=== PATIENT | male | born 1945 | race Caucasian/White ===

== ENCOUNTER 2017-08-13 08:24 | Inpatient (IN) | payer OTHER ==
[~2017-08-13] VITALS: Ht 182.8 cm; Wt 105.8 kg
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
[~2017-08-13 08:24] MED LIST: AMLODIPINE10 MG PO; ASPIRIN ADULT L81 M1 PO; CIPROFLOXACIN500 MG PO; CLOPIDOGREL75 MG PO; FLOMAX0.4 MG PO; LISINOPRIL40 MG PO; METOPROLOL TART50 M1 PO; VITAMIN C500 M4 PO
[2017-08-13 08:43] VITALS: BP 134/74
[2017-08-13 08:44] LABS: BASO % 0.3 % (0.0-1.0); EOS % 0.4 % (1.0-4.0); HEMATOCRIT 38.8 % (42.0-52.0); HEMOGLOBIN 13.5 g/dl (14.0-18.0); LYMPH # 0.8 10*3/uL (1.3-4.4); LYMPH % 7.1 % (27.0-41.0); MEAN CELL VOLUME 87.8 fl (80.0-94.0); MEAN CORPUSCULAR HGB 30.5 pg (27.0-31.0); MEAN CORPUSCULAR HGB CONC 34.8 g/dl (33.0-37.0); MEAN PLATELET VOLUME 8.8 fl (9.6-12.3); MONO # 0.5 10*3/uL (0.1-1.0); MONO % 4.3 % (3.0-9.0); NEUT # 9.5 10*3/uL (2.3-7.9); NEUT % 87.3 % (47.0-73.0); PLATELET COUNT AUTOMATED 228 10*3/uL (130-400); RED BLOOD COUNT 4.42 10*6/uL (4.50-5.90); RED CELL DISTRI WIDTH 11.8 % (0-14.5); WHITE BLOOD COUNT 10.9 10*3/uL (4.8-10.8)
[2017-08-13 08:59] LABS: ALBUMIN 3.7 gm/dl (3.1-4.5); ALKALINE PHOSPHATASE 119 U/L (45-117); BUN 17 mg/dl (7-24); CHLORIDE 96 mmol/L (98-107); CREATININE 1.26 mg/dL (0.70-1.30); LIPASE 183 U/L (73-393); POTASSIUM 3.2 mmol/L (3.5-5.1); SGOT/AST 21 IU/L (3-35); SGPT/ALT 18 U/L (12-78); SODIUM 132 mmol/L (136-145); TOTAL PROTEIN 7.3 gm/dL (6.4-8.2)
--- NOTE | 2017-08-13 09:06 | NUR ---
NAUSEA IS RESOLVED. SALINE INFUSING. NEW ORDER FOR GALLBLADDER ULTRASOUND.
--- NOTE | 2017-08-13 10:21 | NUR ---
PT REPORTS MODERATE IMPROVEMENT IN NAUSEA AN MINIMAL IMPROVEMENT IN PAIN SINCE PHENERGAN AND DEMEROL DOSING. ALL TESTS HAVE NOW RETURNED. DR AWARE AND IS AT BEDSIDE NOW. FAMILY AT BEDSIDE.
--- NOTE | 2017-08-13 10:50 | NUR ---
NO IMPROVEMENT IN PAIN OR NAUSEA SINCE REGLAN. NEW ORDERS PENDING.
--- NOTE | 2017-08-13 10:56 | NUR ---
YULIETID AND ZFRON STOP TIMES ARE NOW
[2017-08-13 11:01] VITALS: BP 137/89
[2017-08-13 11:30] VITALS: BP 122/70
--- NOTE | 2017-08-13 11:31 | NUR ---
MSADMTime: N A 71 year old MALE admitted to 5E under services of SHANITA BARILLAS DO. Pt. arrived via bed from ER. Chief complaint: NAUSEA/VOMITING, ABDM. PAIN. JUSTINO BARNETT
[2017-08-13 16:00] VITALS: BP 148/95
--- NOTE | 2017-08-13 16:22 | NUR ---
MOTRIN GIVEN FOR C/O RT UPPER QUAD PAIN. WILL MONITOR.
--- NOTE | 2017-08-13 17:30 | NUR ---
VLAD LINCOLN RT UPPER QUAD PAIN. WILL CONTINUE TO MONITOR.
[2017-08-13 20:00] VITALS: BP 140/80
[2017-08-13 21:55] LABS: BILIRUBIN NEGATIVE (NEGATIVE); BLOOD 2+ (NEGATIVE); CLARITY CLEAR (CLEAR); COLOR YELLOW (YELLOW); GLUCOSE NEGATIVE (NEGATIVE); KETONE NEGATIVE (NEGATIVE); LEUKO ESTERASE TRACE (NEGATIVE); NITRITE NEGATIVE (NEGATIVE); SPECIFIC GRAVITY <= 1.005 (1.005-1.030); UROBILINOGEN 0.2 E.U./dl (0.2-1.0)
[2017-08-13 22:02] LABS: BACTERIA 2+
[2017-08-13 22:05] LABS: URINE AMPHETAMINES < 1000 (1000ng/ml); URINE BARBITURATES < 200 (200ng/ml); URINE BENZODIAZEPINES < 200 (200ng/ml); URINE CANNABINOIDS (THC) < 50 (50ng/ml); URINE COCAINE < 300 (300ng/ml); URINE METHADONE < 300 (300ng/ml); URINE OPIATES < 300 (300ng/ml)
[2017-08-13 22:06] LABS: URINE PHENCYCLIDINE < 25 (25ng/ml)
[2017-08-14] VITALS: BP 121/88
--- NOTE | 2017-08-14 00:23 | NUR ---
PATIENT RESTING IN BED WITH NO NEEDS MADE. NO S/S OF DISTRESS. BED IN LOWEST POSITION, CALL LIGHT IN REACH
--- NOTE | 2017-08-14 03:33 | NUR ---
PATIENT RESTING IN BED WITH NO NEEDS MADE. NO S/S OF DISTRESS. BED IN LOWEST POSITION, CALL LIGHT IN REACH
[2017-08-14 05:59] LABS: BASO % 0.2 % (0.0-1.0); EOS % 0.2 % (1.0-4.0); HEMATOCRIT 35.8 % (42.0-52.0); HEMOGLOBIN 12.6 g/dl (14.0-18.0); LYMPH # 0.7 10*3/uL (1.3-4.4); LYMPH % 5.8 % (27.0-41.0); MEAN CELL VOLUME 88.6 fl (80.0-94.0); MEAN CORPUSCULAR HGB 31.2 pg (27.0-31.0); MEAN CORPUSCULAR HGB CONC 35.2 g/dl (33.0-37.0); MEAN PLATELET VOLUME 9.3 fl (9.6-12.3); MONO % 8.1 % (3.0-9.0); NEUT # 10.2 10*3/uL (2.3-7.9); NEUT % 85.1 % (47.0-73.0); PLATELET COUNT AUTOMATED 205 10*3/uL (130-400); RED BLOOD COUNT 4.04 10*6/uL (4.50-5.90); RED CELL DISTRI WIDTH 11.9 % (0-14.5)
[2017-08-14 06:33] LABS: ALBUMIN 3.3 gm/dl (3.1-4.5); ALKALINE PHOSPHATASE 98 U/L (45-117); BUN 12 mg/dl (7-24); CHLORIDE 102 mmol/L (98-107); CHOLESTEROL 166 mg/dL (<200); CREATININE 1.11 mg/dL (0.70-1.30); HDL CHOLESTEROL 45 mg/dl (40-60); LDL CHOLESTEROL 95 mg/dL (9-159); MAGNESIUM 1.4 mg/dL (1.5-2.1); PHOSPHOROUS 2.3 mg/dL (2.5-4.9); POTASSIUM 3.9 mmol/L (3.5-5.1); SGOT/AST 20 IU/L (3-35); SGPT/ALT 16 U/L (12-78); SODIUM 137 mmol/L (136-145); TOTAL PROTEIN 6.7 gm/dL (6.4-8.2); TRIGLYCERIDES 130 mg/dl (<150); VLDL CHOLESTEROL 26 mg/dL (6-40)
[2017-08-14 06:35] LABS: ACT PARTIAL THROMBO TIME 25.9 SECONDS (20.8-31.5)
[2017-08-14 06:39] LABS: THYROID STIM HORMONE (HS) 0.484 uIU/ml (0.358-4.75)
[2017-08-14 07:02] LABS: VITAMIN D, 25-HYDROXY 34.4 ng/mL (30-100)
[2017-08-14 08:00] VITALS: BP 118/73
--- NOTE | 2017-08-14 09:39 | NUR ---
DR PARRISH IN & INFORMED OF LOW GRADE TEMPERATURE WELL MILD TACHYCARDIA. NO NEW ORDERS.
--- NOTE | 2017-08-14 11:20 | NUR ---
DR. HALLMAN AND DR. MENDOZA IN TO SEE PT. AT THIS TIME, MADE AWARE OF SECOND HIGH TEMPERATURE READING. NEW ORDERS RECEIVED AT THIS TIME.
--- NOTE | 2017-08-14 11:35 | NUR ---
DR. HALLMAN NOTIFIED THAT PT. IS BEING TAKEN DOWN FOR ORDERED CHEST X-RAY, PER DR. HALLMAN BAG #3 OF NS CAN BE HUNG AT CURRENT RATE OF 125ML/HR, BOLUS OF NS AT 999ML/HR CAN BEGIN WHEN PT. RETURNS TO THE UNIT.
[2017-08-14 12:00] VITALS: BP 116/76
--- NOTE | 2017-08-14 12:47 | NUR ---
DR. HALLMAN CALLED AT THIS TIME TO CHANGE TYELENOL (SUPP) TO ORAL. DR. HALLMAN STATED HE WILL MAKE THIS CHANGE.
--- NOTE | 2017-08-14 13:16 | NUR ---
SPOKE WITH DR. HALLMAN AT THIS TIME ABOUT PTS. CRITICAL LAB OF LACTIC ACID 2.1. DR. HALLMAN STATED TO CONTINUE WITH THE BOLUS AND ANTIBIOTIC WHEN THE PT. RETURNS TO THE UNIT, NO NEW ORDERS AT THIS TIME.
[2017-08-14 15:09] LABS: BILIRUBIN NEGATIVE (NEGATIVE); BLOOD 2+ (NEGATIVE); CLARITY SL CLOUDY (CLEAR); COLOR YELLOW (YELLOW); GLUCOSE NEGATIVE (NEGATIVE); KETONE NEGATIVE (NEGATIVE); LEUKO ESTERASE 3+ (NEGATIVE); NITRITE NEGATIVE (NEGATIVE); PH 5.5 (5.0-9.0); UROBILINOGEN 0.2 E.U./dl (0.2-1.0)
[2017-08-14 15:22] LABS: BACTERIA 2+; RBC 0-2 rbc/hpf (0-2); WBC TNTC wbc/hpf (0-5)
--- NOTE | 2017-08-14 15:42 | NUR ---
DR. HALLMAN NOTIFIED AT THIS TIME OF PTS. CRITICAL LACTIC ACID OF 3.2. DR. HALLMAN STATED THAT WE WILL DO ANOTHER FLUID BOLUS OF NS @999ML/HR.
[2017-08-14 16:00] VITALS: BP 95/54
[2017-08-14 20:00] VITALS: BP 83/44
--- NOTE | 2017-08-14 20:21 | NUR ---
SON CALLED AND WAS UPDATED ON PTS CONDITION, NO FURTHER QUESTIONS AT THIS TIME, HELD BP MEDICATIONS AT THIS TIME, R/T PT HAD DECREASED BP 92/54
--- NOTE | 2017-08-14 20:32 | NUR ---
ADMINSTERED TYLENOL 650MG PO PRN PER ORDERS, R/T INCREASED TEMP. WILL MONITOR EFFECTS
--- NOTE | 2017-08-14 20:55 | NUR ---
CONSULT CALLED IN TO CALL RETURNED FROM WITH NEW ORDERS RECIEVED
[2017-08-14 21:00] VITALS: BP 109/63
--- NOTE | 2017-08-14 21:00 | NUR ---
PT TRANSFERED TO ICCU AT THIS TIME WITH BELONGINGS, ORDERED R/T DECREASED BP, INCREASED HR AND TEMP, REPORT GIVEN TO VANNA DOTSON RN
--- NOTE | 2017-08-14 21:00 | NUR ---
PT. RECEIVED FROM INPATIENT AT 2100, REPORT RECEIVED FROM DEONNA RIVER. ALL BELONGINGS WITH PATIENT. VITAL SIGNS 101.1-108-22, 109/63. PT. REMAINS ALERT AND ORIENTED (VERY COCOPAH). LUNGS DIMINISHED BILAT, PULSE OX 95% ON RA. ABDOMEN SOFT, NONDISTENDED AND NORMO. 1+BLE EDEMA NOTED. PT. STATED NO PAIN UPON ARRIVAL TO ICCU. VANNA DOTSON RN
--- NOTE | 2017-08-14 21:49 | NUR ---
DR. GE CONSULTED PRIOR TO TRANSFER TO ICCU, ORDERS RECEIVED BY INPATIENT. VANNA DOTSON RN
[2017-08-15] VITALS: BP 100/60
--- NOTE | 2017-08-15 00:19 | NUR ---
PT. RESTING COMFORTABLY, NO COMPLAINTS VOICED.
[2017-08-15 04:00] VITALS: BP 100/54
[2017-08-15 04:11] LABS: BASO % 0.1 % (0.0-1.0); LYMPH # 0.8 10*3/uL (1.3-4.4); LYMPH % 5.7 % (27.0-41.0); MEAN CELL VOLUME 90.4 fl (80.0-94.0); MEAN CORPUSCULAR HGB CONC 34.3 g/dl (33.0-37.0); MEAN PLATELET VOLUME 8.5 fl (9.6-12.3); MONO # 1.1 10*3/uL (0.1-1.0); MONO % 7.6 % (3.0-9.0); NEUT # 12.1 10*3/uL (2.3-7.9); NEUT % 85.3 % (47.0-73.0); RED BLOOD COUNT 3.13 10*6/uL (4.50-5.90); RED CELL DISTRI WIDTH 12.2 % (0-14.5); WHITE BLOOD COUNT 14.1 10*3/uL (4.8-10.8)
[2017-08-15 04:15] LABS: HEMATOCRIT 28.3 % (42.0-52.0); HEMOGLOBIN 9.7 g/dl (14.0-18.0); PLATELET COUNT AUTOMATED 126 10*3/uL (130-400)
[2017-08-15 04:26] LABS: BUN 12 mg/dl (7-24); CHLORIDE 105 mmol/L (98-107); CREATININE 1.17 mg/dL (0.70-1.30); MAGNESIUM 1.3 mg/dL (1.5-2.1); POTASSIUM 3.4 mmol/L (3.5-5.1); SODIUM 136 mmol/L (136-145)
[2017-08-15 08:00] VITALS: BP 97/60
--- NOTE | 2017-08-15 08:30 | NUR ---
SHANK STITCHER VS. PT BEING TAKEN OFF FLOOR FOR TESTIN. STAFF STATES PT UPSET THAT IS HOME POSSIBLY ALONE. HAS HAD STROKE AND PT IS HER CAREGIVER. I CALLED HIS SON ESTHER. ESTHER TELLS ME PT IS NOT ALONE. HIS SISTER STAYS AT NIGHT AND WAS ON HIS WAY TO STAY WITH HER TODAY. ESTHER ASSURES ME PT WILL NOT BE LEFT ALONE. PT INFORMED IS BEING CARED FOR.
--- NOTE | 2017-08-15 09:00 | NUR ---
TAKEN DOWN TO NUCLEAR MED FOR HIDA SCAN.
[2017-08-15 12:00] VITALS: BP 109/55
[2017-08-15 16:00] VITALS: BP 111/60
--- NOTE | 2017-08-15 16:30 | NUR ---
VOIDED 150CC URINE. BLADDER SCANNED FOR 40CC URINE.
--- NOTE | 2017-08-15 18:28 | NUR ---
DR ELI MULLINS NOTIFIED THAT HIDA SCAN RESULTS AVAILABLE AND THAT PT HAS A SKIN TEAR ON HIS LEFT ARM.
--- NOTE | 2017-08-15 18:44 | NUR ---
DR. MCCRARY NOTIFIED OF HIDA SCAN RESULT. HE STATES TO MAKE PATIENT NPO AND HE WILL LET DR. VASQUEZ KNOW WHO IS YOUTH CARE PROFESSIONAL.
--- NOTE | 2017-08-15 18:45 | NUR ---
DR. VASQUEZ CALLED IN AND UPDATED ON PATIENT'S CONDITION. WILL SEE IN AM.
[2017-08-15 20:00] VITALS: BP 110/64
--- NOTE | 2017-08-15 20:08 | NUR ---
PT. RESTING IN BED WATCHING TV. IVF INFUSING VIA RH, SITE ASYMPT. LUNGS DIMINISHED BUT CLEAR BILAT.PULSE OX 96% ON RA. ABDOMEN SOFT, NONDISTENDED AND NORMO, PT. STATED RIGHT UPPER QUAD TENDERNESS WITH PALPATION. BLE EDEMA NOTED. RESP. EASY AND REG, NO DISTRESS. VANNA DOTSON RN
[2017-08-16] VITALS: BP 111/69
[2017-08-16 04:00] VITALS: BP 106/97
[2017-08-16 04:51] LABS: BASO % 0.1 % (0.0-1.0); EOS # 0.1 10*3/uL (0.0-0.4); EOS % 1.2 % (1.0-4.0); HEMATOCRIT 27.6 % (42.0-52.0); HEMOGLOBIN 9.5 g/dl (14.0-18.0); LYMPH # 0.8 10*3/uL (1.3-4.4); LYMPH % 9.2 % (27.0-41.0); MEAN CELL VOLUME 90.5 fl (80.0-94.0); MEAN CORPUSCULAR HGB 31.1 pg (27.0-31.0); MEAN CORPUSCULAR HGB CONC 34.4 g/dl (33.0-37.0); MEAN PLATELET VOLUME 9.2 fl (9.6-12.3); MONO # 0.6 10*3/uL (0.1-1.0); NEUT # 7.5 10*3/uL (2.3-7.9); PLATELET COUNT AUTOMATED 142 10*3/uL (130-400); RED BLOOD COUNT 3.05 10*6/uL (4.50-5.90); RED CELL DISTRI WIDTH 12.2 % (0-14.5); WHITE BLOOD COUNT 9.2 10*3/uL (4.8-10.8)
[2017-08-16 05:06] LABS: BUN 10 mg/dl (7-24); CHLORIDE 106 mmol/L (98-107); CREATININE 0.95 mg/dL (0.70-1.30); POTASSIUM 3.3 mmol/L (3.5-5.1); SODIUM 137 mmol/L (136-145)
[2017-08-16 08:00] VITALS: BP 119/83; BP 120/79
--- NOTE | 2017-08-16 11:43 | NUR ---
DR AVILEZ IN TO SEE PT. INFORMED PT THAT HE WILL NEED TO GET HIS GALLBLADDER OUT PRIOR TO DISCHARGE. DR AVILEZ IS PLANNING ON EITHER TUESDAY OR TUESDAY.
[2017-08-16 12:00] VITALS: BP 119/83
--- NOTE | 2017-08-16 12:30 | NUR ---
VERIFIED WITH DR AVILEZ THAT PT CAN HAVE SCHEDULED LOVENOX. LOVENOX TO BE GIVEN PER ORDER.
[2017-08-16 16:00] VITALS: BP 114/84
--- NOTE | 2017-08-16 19:48 | NUR ---
PT. RESTING IN BED. DENIES PAIN OR DISCOMFORT. STATES RUQ TENDERNESS ONLY WITH PALPATION. HEP LOCK IN RH ASYMPT, IVF CONTINUE ORDERED. LUNGS DIMINISHED BUT CLEAR BILAT, PULSE OX 96% ON RA. ABDOMEN SOFT, NONDISTENDED AND NORMO. TRACE BLE EDEMA NOTED. LEFT SIDED WEAKNESS FROM OLD CVA NOTED. RESP. EASY AND REG, NO DISTRESS. VANNA DOTSON RN
[2017-08-16 20:00] VITALS: BP 129/87
--- NOTE | 2017-08-16 22:11 | NUR ---
RESTORIL GIVEN AT 2115 PER PT REQUEST. CURRENTLY SLEEPING, RESTORIL EFFECTIVE.
[2017-08-17 00:05] VITALS: BP 138/79
[2017-08-17 04:00] VITALS: BP 129/84
[2017-08-17 04:48] LABS: BASO % 0.4 % (0.0-1.0); EOS # 0.3 10*3/uL (0.0-0.4); EOS % 5.4 % (1.0-4.0); HEMATOCRIT 28.2 % (42.0-52.0); HEMOGLOBIN 9.8 g/dl (14.0-18.0); LYMPH # 0.9 10*3/uL (1.3-4.4); LYMPH % 16.5 % (27.0-41.0); MEAN CELL VOLUME 89.5 fl (80.0-94.0); MEAN CORPUSCULAR HGB 31.1 pg (27.0-31.0); MEAN CORPUSCULAR HGB CONC 34.8 g/dl (33.0-37.0); MONO # 0.5 10*3/uL (0.1-1.0); MONO % 9.8 % (3.0-9.0); NEUT # 3.6 10*3/uL (2.3-7.9); NEUT % 67.3 % (47.0-73.0); PLATELET COUNT AUTOMATED 161 10*3/uL (130-400); RED BLOOD COUNT 3.15 10*6/uL (4.50-5.90); WHITE BLOOD COUNT 5.4 10*3/uL (4.8-10.8)
[2017-08-17 05:04] LABS: BUN 5 mg/dl (7-24); CHLORIDE 106 mmol/L (98-107); CREATININE 0.79 mg/dL (0.70-1.30); POTASSIUM 3.6 mmol/L (3.5-5.1); SODIUM 138 mmol/L (136-145)
[2017-08-17 08:00] VITALS: BP 127/77
--- NOTE | 2017-08-17 10:15 | NUR ---
DR AVILEZ IN TO SEE PT. NEW ORDERS RECEIVED. PT WILL BE PLACED ON LOW FAT DIET,HOLD ASA UNTIL AFTER SURGERY,PT MAY HAVE LOVENOX. SURGERY TO BE TUESDAY.
[2017-08-17 12:00] VITALS: BP 123/75
--- NOTE | 2017-08-17 13:41 | NUR ---
PT UP TO CHAIR WITH 1 ASSIST.
--- NOTE | 2017-08-17 14:44 | NUR ---
COLTON VIEIRA [id number] Please refer to the physician's history and physical for past medical history, comorbid conditions, and allergies. Diagnosis: VOMITING CHOLELITHIASIS Acbrera Score: 19,LOW OR NO RISK WOUND DESCRIPTIONS: Location of the wound: left forearm Type of wound: skin tear Thickness: Partial Size: 0.7cm x 2.0cm x 0.1cm Tunneling: none Undermining: none Sinus Tract: none Presence of Exudate: serosanguineous Amount: Light Color: Red Odor: None Periwound Skin Appearance: Normal Wound edges: approximated Pain (associated with wound): none at time of assessment How does patient state this happened? pt stated he bumped it on the arm of the chair. Surface the patient is resting on: Isoflex SKIN PREVENTION RECOMMENDATION: 1. Pressure redistribution support surface as appropriate 2. Elevate heels 3. Remove boots/TEDS every shift and reapply 4. Head of bed 30 degrees as tolerated 5. Assess nutrition and hydration 6. Manage moisture 7. Avoid the use of containment devices while in bed 8. Use absorptive products on surfaces limit layers of linens on bed 9. Turn and reposition every 1-2 hours in bed and every 1 hour in chair as tolerated 10. Weight shifts every 15 minutes while up in chair 11. Offloading with pillows or device to keep heels elevated off bed 12. Monitor skin at least every shift 13. Inspect under medical devices twice a day WOUND TREATMENT RECOMMENDATIONS: Patient requesting antiobiotic ointment and a bandaid.
[2017-08-17 16:00] VITALS: BP 136/74
--- NOTE | 2017-08-17 16:23 | NUR ---
PT REMAINS SITTING IN THE CHAIR. PT TOLERATING IT WELL.
--- NOTE | 2017-08-17 17:37 | NUR ---
PT REFUSED DRESSING CHANGE.
--- NOTE | 2017-08-17 18:36 | NUR ---
PT BACK TO BED WITH 1 ASSIST.
[2017-08-17 20:00] VITALS: BP 143/91
--- NOTE | 2017-08-17 20:00 | NUR ---
PATIENT LYING IN BED, VERY TALKATIVE, HAS SMALL AMOUNT OF PAIN IN UPPER RT QUAD, DIDNT WANT ANYTHING FOR PAIN. DID ASK FOR A SLEEPING PILL LATER ON TON. PATIENT AWARE HIS SURGERY IS TUESDAY. FLUIDS RUNNING. WILL CONTINUE TO MONITOR. PATIENT LEFT WITH CALL LIGHT IN REACH.
[2017-08-18] VITALS: BP 142/95
[2017-08-18 04:00] VITALS: BP 141/87
[2017-08-18 06:22] LABS: BASO % 0.4 % (0.0-1.0); EOS # 0.3 10*3/uL (0.0-0.4); EOS % 5.1 % (1.0-4.0); HEMATOCRIT 28.4 % (42.0-52.0); HEMOGLOBIN 9.8 g/dl (14.0-18.0); LYMPH # 0.7 10*3/uL (1.3-4.4); LYMPH % 14.8 % (27.0-41.0); MEAN CELL VOLUME 89.9 fl (80.0-94.0); MEAN CORPUSCULAR HGB CONC 34.5 g/dl (33.0-37.0); MONO # 0.5 10*3/uL (0.1-1.0); NEUT # 3.4 10*3/uL (2.3-7.9); NEUT % 68.9 % (47.0-73.0); PLATELET COUNT AUTOMATED 178 10*3/uL (130-400); RED BLOOD COUNT 3.16 10*6/uL (4.50-5.90); RED CELL DISTRI WIDTH 12.1 % (0-14.5); WHITE BLOOD COUNT 4.9 10*3/uL (4.8-10.8)
[2017-08-18 06:49] LABS: INTERNATIONAL NORM RATIO 0.9 (2.0-3.5)
[2017-08-18 08:00] VITALS: BP 122/75
[2017-08-18 10:07] LABS: LEGIONELLA URINARY ANTIGEN Negative (Negative)
[2017-08-18 13:52] VITALS: BP 140/88
--- NOTE | 2017-08-18 14:59 | NUR ---
DR AVILEZ IN TO SEE PT EARLIER. OK'D LOVENOX TO BE GIVEN TODAY.
[2017-08-18 16:00] VITALS: BP 138/84
--- NOTE | 2017-08-18 19:45 | NUR ---
IN TO SEE PATIENT. HE WILL PUT ORDER IN, PATIENT WILL BE NPO AT MIDNIGHT. PATIENT STATED HIS SURGERY IS AT 730AM. PATIENT DENIES ANY PAIN,NAUSEA/VOMITING,DIARRHEA. WILL CONTINUE TO MONITOR. PATIENT LEFT WITH CALL LIGHT IN REACH.
[2017-08-18 20:00] VITALS: BP 155/91
--- NOTE | 2017-08-18 22:00 | NUR ---
PATIENT REQUESTED SOMETHING TO HELP HIM SLEEP. RESTORIL GIVEN. WILL REASSESS.
[2017-08-19] VITALS (12 sets, daily range): BP systolic 105–157; BP diastolic 72–90
--- NOTE | 2017-08-19 | NUR ---
PATIENT RESTING, NO DISTRESS NOTED. RESTORIL EFFECTIVE.
[2017-08-19 05:33] LABS: BASO % 0.3 % (0.0-1.0); EOS # 0.4 10*3/uL (0.0-0.4); EOS % 6.1 % (1.0-4.0); HEMATOCRIT 30.8 % (42.0-52.0); HEMOGLOBIN 10.5 g/dl (14.0-18.0); LYMPH # 0.9 10*3/uL (1.3-4.4); MEAN CELL VOLUME 88.8 fl (80.0-94.0); MEAN CORPUSCULAR HGB 30.3 pg (27.0-31.0); MEAN CORPUSCULAR HGB CONC 34.1 g/dl (33.0-37.0); MEAN PLATELET VOLUME 8.9 fl (9.6-12.3); MONO # 0.6 10*3/uL (0.1-1.0); MONO % 10.1 % (3.0-9.0); PLATELET COUNT AUTOMATED 191 10*3/uL (130-400); RED BLOOD COUNT 3.47 10*6/uL (4.50-5.90); RED CELL DISTRI WIDTH 11.9 % (0-14.5); WHITE BLOOD COUNT 5.9 10*3/uL (4.8-10.8)
--- NOTE | 2017-08-19 07:57 | NUR ---
Shift chart check completed.24 HR chart check completed.
--- NOTE | 2017-08-19 09:43 | NUR ---
PT TO SURGERY VIA BED.
--- NOTE | 2017-08-19 13:39 | NUR ---
PT REMAINS IN SURGERY
--- NOTE | 2017-08-19 16:10 | NUR ---
PT REMAINS IN SURGERY.
--- NOTE | 2017-08-19 16:17 | NUR ---
PT IS RESTING WITH NO CHANGE IN DIPRIVAN DRIP. TUBE FEEDING AT 60ML/HR WITH NO RESIDUAL. CBI CONTINUES WITH CLEAR YELLOW URINE.
--- NOTE | 2017-08-19 17:00 | NUR ---
PT RETURNED FROM SURGERY. ALERT AND ORIENTED. NGT RT NARE IN PLACE. BLOOD INFUSING FROM SURGERY, PER REPORT FROM SURGERY IT WAS STARTED AT 1550,NO APPARENT REACTION. THERE IS NO CONSENT IN CHART BUT PER SURGERY THIS IS COVERED BY SURGICAL CONSENT. OLD IV SITE RT HAND OCCLUDED AND REMOVED. FUNES CATHETER IN PLACE, CLEAR YELLOW. SCD'S IN PLACE. HE HAS A LARGE GAUZE AND MEFIX DRESSING TO HIS RUQ AND FELICITY BULB IN PLACE WITH SMALL AMOUNT OF SANGUINOUS DRAINAGE. ENCOURAGED COUGH AND DEEP BREATHING. PT'S SON IN TO VISIT. SEE ALL APPROPRIATE INTERVENTIONS.
--- NOTE | 2017-08-19 18:33 | NUR ---
DR AVILEZ CAME TO SEE PT. TRANSFUSION COMPLETE WITHOUT REACTION. DR AVILEZ REVIEWED ORDERS. UROMETER APPLIED TO FUNES FOR Q2HR URINE OUTPUTS. FELICITY EMPTIED SEE ALL APPROPRIATE INTERVENTIONS.
[2017-08-19 19:41] LABS: HEMATOCRIT 32.8 % (42.0-52.0); HEMOGLOBIN 11.4 g/dl (14.0-18.0)
--- NOTE | 2017-08-19 20:00 | NUR ---
DR VASQUEZ UPDATED ON PT H&H AND URINE OUTPUT. NEW ORDER FOR 1/2 NS & 20 KCL AT 125CC/HR AFTER BAG RUNNING IS FINISHED AND TO CALL IF NEXT H&H <9.
[2017-08-20] VITALS: BP 138/88
[2017-08-20 00:26] LABS: HEMATOCRIT 32.6 % (42.0-52.0); HEMOGLOBIN 11.2 g/dl (14.0-18.0)
[2017-08-20 04:00] VITALS: BP 137/80
--- NOTE | 2017-08-20 04:15 | NUR ---
MEDICATED WITH MORPHINE AND ZOFRAN FOR C/O NAUSEA AND PAIN.
[2017-08-20 04:33] LABS: BASO % 0.1 % (0.0-1.0); EOS % 0.4 % (1.0-4.0); HEMATOCRIT 32.6 % (42.0-52.0); HEMOGLOBIN 11.1 g/dl (14.0-18.0); LYMPH # 0.8 10*3/uL (1.3-4.4); LYMPH % 8.3 % (27.0-41.0); MEAN CELL VOLUME 90.1 fl (80.0-94.0); MEAN CORPUSCULAR HGB 30.7 pg (27.0-31.0); MEAN PLATELET VOLUME 8.7 fl (9.6-12.3); MONO # 0.8 10*3/uL (0.1-1.0); MONO % 8.5 % (3.0-9.0); NEUT # 7.4 10*3/uL (2.3-7.9); NEUT % 81.5 % (47.0-73.0); PLATELET COUNT AUTOMATED 221 10*3/uL (130-400); RED BLOOD COUNT 3.62 10*6/uL (4.50-5.90); RED CELL DISTRI WIDTH 12.3 % (0-14.5)
[2017-08-20 05:04] LABS: ALBUMIN 2.4 gm/dl (3.1-4.5); ALKALINE PHOSPHATASE 68 U/L (45-117); BUN 9 mg/dl (7-24); CHLORIDE 102 mmol/L (98-107); CREATININE 0.84 mg/dL (0.70-1.30); POTASSIUM 4.5 mmol/L (3.5-5.1); SGOT/AST 79 IU/L (3-35); SGPT/ALT 54 U/L (12-78); SODIUM 136 mmol/L (136-145)
--- NOTE | 2017-08-20 06:00 | NUR ---
MORPHINE AND ZOFRAN EFFECTIVE.
[2017-08-20 08:00] VITALS: BP 146/92
--- NOTE | 2017-08-20 08:30 | NUR ---
PT AAOX3. RESP EASY. VSS. NGT REMAINS TO L.I.S. LIGHT GREEN FLUID NOTEDIN SUCTION CONTAINER. ABD. SOFT WITH HYPO. BOWEL SOUNDS. ABD. DSG D/I. FELICITY BULB INTACT FOR SEROUS DRAINAGE. FUNES PATENT FOR STRAW COLORED URINE. SCD'S TO LOWER EXT. PT C/O RUQ ABD.PAIN THAT RATES AN 8/10. MEDICATED PT PER PRN ORDER WITH MORPHINE FOR PT'S C/O PAIN.
--- NOTE | 2017-08-20 09:00 | NUR ---
PT STATES RELIEF OF PAIN WITH EARLIER MORPHINE.
--- NOTE | 2017-08-20 11:20 | NUR ---
MEDICATED PT PER PRN ORDER WITH MORPHINE FOR PT'S C/O RUQ PAIN THAT RATES 8/10. ALSO MEDICATED PT WITH ZOFRAN PER PRN ORDER FOR PT'S C/O NAUSEA.
[2017-08-20 12:00] VITALS: BP 150/90
--- NOTE | 2017-08-20 12:00 | NUR ---
PT STATES RELIEF OF PAIN WITH EARLIER MORPHINE AND RELIEF OF NAUSEA WITH EARLIER ZOFRAN.
--- NOTE | 2017-08-20 12:56 | NUR ---
DR AVILEZ IN TO SEE PT. NGT D/C'DBY DOCTOR. NEW ORDERS RECEIVED.
--- NOTE | 2017-08-20 13:35 | NUR ---
PT UP TO CHAIR WITH 2 ASSIST. MEDICATED PT PER PRN ORDER WITH MORPHINE.
--- NOTE | 2017-08-20 14:00 | NUR ---
PT STATES RELIEF OF PAIN WITH EARLIER MORPHINE. PT TOLERATING SITTING IN THE CHAIR WELL.
--- NOTE | 2017-08-20 15:30 | NUR ---
PT BACK TO BED WITH 2 ASSIST. IV MOPRHINE GIVEN TO PT FOR C/O RUQ PAIN THAT RATES A 07/07. PT REQUESTING FUNES CATH NPOT TO BE TAKEN OUT AT THIS TIME.
[2017-08-20 16:00] VITALS: BP 155/86
--- NOTE | 2017-08-20 16:00 | NUR ---
PT BACK TO BED WITH 2 ASSIST. PT C/O RUQ ABD. PAIN THAT RATES 8/10 OM PAIN SCALE. MEDICATED PT PER PRN ORDER WITH MORPHINE PER PRN ORDER. PT REFUSING FUNES CATH TO BE TAKEN OUT AT THIS TIME.
--- NOTE | 2017-08-20 16:15 | NUR ---
PT SLEEPING. EARLIER MORPHINE EFFECTIVE.
--- NOTE | 2017-08-20 16:30 | NUR ---
PT STATES EARLIER MORPHINE HELPED WITH PT'S ABD. PAIN.
--- NOTE | 2017-08-20 17:27 | NUR ---
PT C/O NAUSEA AFTER EATING JELLO. MEDICATED PT PER PRN ORDER WITH ZOFRAN.
--- NOTE | 2017-08-20 17:32 | NUR ---
PT REFUSING BATH AT THIS TIME. BED LINENS CHANGED EARLIER.
--- NOTE | 2017-08-20 18:00 | NUR ---
PT STATES RELIEF OF NAUSEA WITH EARLIER ZOFRAN.
[2017-08-20 20:00] VITALS: BP 152/96
--- NOTE | 2017-08-20 20:00 | NUR ---
PATIENT LYING IN BED, HAS COMPLAINT OF SURGICAL PAIN. ALSO STATED HE DIDNT THINK HE WAS GONNA BE READY TO GO HOME TOMORROW. PATIENT STATED HE DID GET NAUSEATED WHEN TRYING TO EAT JELLO, BUT FELT OK WITH WATER. PATIENT WAS GIVEN MORPHINE FOR THE PAIN. WILL MONITOR AND REASSESS.
--- NOTE | 2017-08-20 21:00 | NUR ---
PATIENT RESTING IN BED, NO SIGNS OF DISTRESS MORPHINE EFFECTIVE.
[2017-08-21] VITALS (7 sets, daily range): BP systolic 130–169; BP diastolic 54–86
[2017-08-21 05:15] LABS: BASO % 0.4 % (0.0-1.0); EOS # 0.1 10*3/uL (0.0-0.4); EOS % 1.3 % (1.0-4.0); HEMATOCRIT 31.5 % (42.0-52.0); HEMOGLOBIN 10.8 g/dl (14.0-18.0); LYMPH % 8.9 % (27.0-41.0); MEAN CELL VOLUME 90.8 fl (80.0-94.0); MEAN CORPUSCULAR HGB 31.1 pg (27.0-31.0); MEAN CORPUSCULAR HGB CONC 34.3 g/dl (33.0-37.0); MEAN PLATELET VOLUME 8.5 fl (9.6-12.3); MONO # 1.2 10*3/uL (0.1-1.0); NEUT # 8.1 10*3/uL (2.3-7.9); NEUT % 76.2 % (47.0-73.0); PLATELET COUNT AUTOMATED 247 10*3/uL (130-400); RED BLOOD COUNT 3.47 10*6/uL (4.50-5.90); RED CELL DISTRI WIDTH 12.4 % (0-14.5); WHITE BLOOD COUNT 10.7 10*3/uL (4.8-10.8)
[2017-08-21 05:44] LABS: ALBUMIN 2.3 gm/dl (3.1-4.5); ALKALINE PHOSPHATASE 68 U/L (45-117); BUN 9 mg/dl (7-24); CHLORIDE 98 mmol/L (98-107); POTASSIUM 4.3 mmol/L (3.5-5.1); SGOT/AST 51 IU/L (3-35); SGPT/ALT 45 U/L (12-78); SODIUM 130 mmol/L (136-145)
--- NOTE | 2017-08-21 06:05 | NUR ---
PATIENT DENIES ANY PAIN AT THIS TIME. IS ASKING ABOUT EATING A LITTLE MORE FOR BREAKFAST. WILL CONTINUE TO MONITOR, PATIENT LEFT WITH CALL LIGHT IN REACH.
--- NOTE | 2017-08-21 17:13 | NUR ---
DR AVILEZ IN TO ASSESS PT. NO NEW ORDERS RECIEVED.
--- NOTE | 2017-08-21 17:27 | NUR ---
PT MOVED TO 424 VIA BED. ALL BELONGINGS TAKEN WITH PT.
--- NOTE | 2017-08-21 20:00 | NUR ---
ASSUMED CARE OF PATIENT. ASSESSMENT COMPLETE. RESTING IN BED. CALL LIGHT IN REACH. WILL CONTINUE TO MONITOR.
--- NOTE | 2017-08-21 21:25 | NUR ---
PT GIVEN MORPHINE IV PUSH FOR PAIN. WILL CONINUE TO MONITOR.
--- NOTE | 2017-08-21 23:00 | NUR ---
PER PATIENT, EARLIER MORPHINE EFFECTIVE
[2017-08-22] VITALS: BP 132/82
--- NOTE | 2017-08-22 02:00 | NUR ---
SLEEPING. RESP EASY AND NONLABORED ON ROOM AIR. NO DISTRESS NOTED. CM INTACT. IVF INFUSING PER ORDER WITHOUT DIFFICULTY. CALL LIGHT IN REACH. WILL CONTINUE TO MONITOR.
--- NOTE | 2017-08-22 05:47 | NUR ---
PT GIVEN ZOFRAN PRN FOR STOMACHE PAIN. CALL LIGHT IN REACH, WILL CONINUE TO MONITOR.
[2017-08-22 06:17] LABS: HEMATOCRIT 32.7 % (42.0-52.0); HEMOGLOBIN 10.9 g/dl (14.0-18.0); MEAN CELL VOLUME 91.6 fl (80.0-94.0); MEAN CORPUSCULAR HGB 30.5 pg (27.0-31.0); MEAN CORPUSCULAR HGB CONC 33.3 g/dl (33.0-37.0); MEAN PLATELET VOLUME 8.8 fl (9.6-12.3); PLATELET COUNT AUTOMATED 296 10*3/uL (130-400); RED BLOOD COUNT 3.57 10*6/uL (4.50-5.90); RED CELL DISTRI WIDTH 12.2 % (0-14.5); WHITE BLOOD COUNT 8.8 10*3/uL (4.8-10.8)
[2017-08-22 06:38] LABS: ALBUMIN 2.3 gm/dl (3.1-4.5); ALKALINE PHOSPHATASE 71 U/L (45-117); BUN 12 mg/dl (7-24); CHLORIDE 95 mmol/L (98-107); CREATININE 0.77 mg/dL (0.70-1.30); POTASSIUM 4.8 mmol/L (3.5-5.1); SGOT/AST 41 IU/L (3-35); SGPT/ALT 40 U/L (12-78); SODIUM 131 mmol/L (136-145); TOTAL PROTEIN 6.5 gm/dL (6.4-8.2)
[2017-08-22 07:02] LABS: PLATELET SUFFICIENCY NORMAL (NORMAL); POLYCHROMASIA SLIGHT; TOTAL CELLS COUNTED 100 #CELLS
--- NOTE | 2017-08-22 07:48 | NUR ---
PT C.O HEARTBURN. CALLED AND SPOKE TO DR MENDOZA. ORDER RECEIVED FOR PROTONIX. ALSO QUESTIONED FLUIDS, ORDER TO DC THE FLUIDS
[2017-08-22 08:00] VITALS: BP 127/79
[2017-08-22 12:00] VITALS: BP 128/84
--- NOTE | 2017-08-22 13:19 | NUR ---
PHYSICAL THERAPY PAtient evaluiated on 4, full evaluation to follow. Continue with PT as per plan of care with fall, mod (A) x 2, old CVA with left hemiparesis and alarm precautions. Also, recent open abdominal surgery precautions. Recommend SNF but refuses as he wants home [facility]. PAtient is high complexity via chart review, tests and evaluation: 71097. Thank you for this referral. Shahnaz Disla,PT
--- NOTE | 2017-08-22 14:42 | NUR ---
FELICITY DRAIN TO RIGHT SIDE OF ABDOMEN REMOVED PER SURGEON'S ORDER. 5ML SEROUSANGUINOUS DRAINAGE EMPTIED. PATIENT TOLERATED WELL, NO BLEEDING AT SITE NOTED. ALSO CHANGED DRESSINGS TO ABDOMINAL INCISIONS, UPPER INCISION AND SMALLER LOWER INCISION FREE FROM S/S INFECTION, DRAINAGE OR BLEEDING, SUSAN INTACT. APPLIED DRY GAUZE DRESSING WITH PAPER TAPE ORDERED FOR POST OP DAY 2 DRESSING CHANGE.
[2017-08-22 16:00] VITALS: BP 149/79
[2017-08-22 20:00] VITALS: BP 123/78
--- NOTE | 2017-08-22 20:00 | NUR ---
PATIENT RESTING IN BED WITH EYES CLOSED. EASILY ARROUSABLE. NO NEEDS AT THIS TIME. BED IN LOWEST POSITION, CALL LIGHT IN REACH
[2017-08-23] VITALS: BP 113/76
--- NOTE | 2017-08-23 01:18 | NUR ---
24 HR chart check completed.
--- NOTE | 2017-08-23 03:25 | NUR ---
PATIENT RESTING WITH EYES CLOSED. RESPS EASY AND REGULAR. NO S/S OF DISTRESS. BED IN LOWEST POSITION, CALL LIGHT IN REACH
[2017-08-23 08:00] VITALS: BP 104/62
--- NOTE | 2017-08-23 08:30 | NUR ---
PT SITTING UP IN RECLINER CHAIR. THERAPY HAS BRACE ON LEFT LEG. RESP-EASY AND REGULAR. ENCOURGED IS. CALL LIGHT IN REACH. SEE SHIFT ASSESSMENT.
--- NOTE | 2017-08-23 09:53 | NUR ---
CALLED DR. MARCUS REGARDING BP 98/62 HR-82. HE STATRES HOLD THEM AND RECHECK BP IN ONE HOUR AND CALL HIIM WITH IT.
[2017-08-23 09:55] VITALS: BP 98/62
--- NOTE | 2017-08-23 10:16 | NUR ---
PHYSICAL THERAPY Mr Velasco seen this AM 1:1 for his therapy treatment. Pt having old CVA left, and open abdominal surgery precautions. First put left foot/ankle brace on Pt in supine. Followed by transfer supine/sit, MOD A X 1, once up sitting balance CG X 1, X 7 min. Verbal cueing for transfer up standing, standing balance with Pt's straight cane, cueing for balance safety and MOD/MAX A X 1, then gait pivot and training mgr front of his bedside chair MAX A X 1, stand to tolerance the sit. Pt with body alarm on and tray in front, nursing in, treatment time 18 min. LUMA MOLINA MANUFACTURING QUALITY ENGINEER.
--- NOTE | 2017-08-23 10:38 | NUR ---
airport planner in to see patient to discuss home health nursing and PT. Patient refused snf because he takes care of his at home, but agreed to [facility] for nursing and PT. will contact Meghan for referral.
[2017-08-23 10:45] VITALS: BP 98/62
[2017-08-23 10:55] VITALS: BP 98/62
--- NOTE | 2017-08-23 10:55 | NUR ---
CALLED DR. MARCUS MADE AWARE OF BP 98/62 MANUALLY PER HIS ORDER TO CALL.
--- NOTE | 2017-08-23 15:32 | NUR ---
CALLED DR. WALKER BACK MADE DOLORES PT DID FINE WITH LUNCH.
[2017-08-23] MEDS ORDERED: ZOFRAN ODT4 MG SL (15:37)
[2017-08-23 16:00] VITALS: BP 96/66
--- NOTE | 2017-08-23 16:49 | NUR ---
FAMILY NOTIFIED REGARDING DISCHARGE ORDER.
--- NOTE | 2017-08-23 17:13 | NUR ---
PATIENT REFUSED DISCHARGE PHOTO TO SKIN TEAR ON LEFT FOREARM.
--- NOTE | 2017-08-23 17:14 | NUR ---
Discharge instructions reviewed with patient/family. Patient receptive and verbalizes understanding. Follow-up care arranged. Written instructions given to patient/family. JALEN SHEPPARD.
--- NOTE | 2017-08-24 07:29 | NUR ---
PHYSICAL THERAPY CO-SIGN I approve of the Phyical Therapy notes written above. HAMILTON CHACKO PT
--- NOTE | 2017-08-24 09:28 | NUR ---
Received new order for home health via [facility]. Faxed order and clincals for referral.
== END 2017-08-23 17:14 | disposition home health service (06) | DRG 853 ==
LOC: ED 08:24 → 4E 10:49 → ICCU 10:49 → EDHOLD 10:49 → 5E 10:56 → ICCU 08-14 21:18 → 4E 08-21 17:56
PROVIDERS: Emergency Medicine; Internal Medicine; Internal Medicine Infectious Disease; Internal Medicine Nephrology; ADMIT Internal Medicine
PROC: 0FJ44ZZ Inspection of Gallbladder, Percutaneous Endoscopic Approach (ICD-10-PCS; principal; 2017-08-19)
PROC: 0FT40ZZ Resection of Gallbladder, Open Approach (ICD-10-PCS; principal; 2017-08-19)
PROC: 0DNW0ZZ Release Peritoneum, Open Approach (ICD-10-PCS; principal; 2017-08-19)
DX: A41.9 Sepsis, unspecified organism (principal); E43 Unspecified severe protein-calorie malnutrition; E87.8 Other disorders of electrolyte and fluid balance, not elsewhere classified; K80.12 Calculus of gallbladder with acute and chronic cholecystitis without obstruction; N39.0 Urinary tract infection, site not specified; E87.1 Hypo-osmolality and hyponatremia; E87.6 Hypokalemia; R31.9 Hematuria, unspecified; D72.818 Other decreased white blood cell count; D72.810 Lymphocytopenia; R73.9 Hyperglycemia, unspecified; E66.09 Other obesity due to excess calories; I10 Essential (primary) hypertension; N40.0 Benign prostatic hyperplasia without lower urinary tract symptoms; E83.39 Other disorders of phosphorus metabolism; E83.42 Hypomagnesemia; K57.30 Diverticulosis of large intestine without perforation or abscess without bleeding; D64.9 Anemia, unspecified; Z90.49 Acquired absence of other specified parts of digestive tract; Z86.73 Personal history of transient ischemic attack (TIA), and cerebral infarction without residual deficits; Z79.899 Other long term (current) drug therapy; Z79.82 Long term (current) use of aspirin; Z87.440 Personal history of urinary (tract) infections; Z89.112 Acquired absence of left hand; Z87.891 Personal history of nicotine dependence; Z68.31 Body mass index [BMI] 31.0-31.9, adult; Z53.31 Laparoscopic surgical procedure converted to open procedure

== ENCOUNTER 2017-09-08 02:20 | Inpatient (IN) | payer OTHER ==
[~2017-09-08] VITALS: Ht 185.4 cm; Wt 93.6 kg
[2017-09-08] VITALS (9 sets, daily range): BP systolic 86–113; BP diastolic 53–75
--- NOTE | ~2017-09-08 | O ---
[place], [place] OPERATIVE NOTE NAME: [facility]: [id number] UNIT #: [id number] ROOM: 506 DOCTOR[facility] BIR[facility] [birth year] DOS: GASTROENDOSCOPIC REPORT INDICATIONS: This is a 71-year-old who was presented with nausea and vomiting, epigastric distress. Nasogastric tube has been placed and moderate volume of debris has been suctioned out of him. 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 The patient as well has had complex gallbladder gangrenous and stone migration through the wall and adhesions at the hepatic flexure and complex case that had to be surgically opened and he has been at home and while he was in the hospital, he has been of course on antibiotic therapy. Eventually, he had to come back for definitive assessment. His lactic acid was normal. CT scan of the abdomen expressing changes of bypass and suspected proximal bowel obstruction possibilities and concerns as mechanical issues. PROCEDURE: Today's procedure part of investigation is panendoscopy. PREMEDICATION: Versed and Diprivan. SCOPE: Olympus forward-viewing gastroscope Q10 video. REPORT: After putting the patient in the left lateral position and after application of lubricant to the scope, the scope was introduced; thereafter, under direct visualization, advanced through the length of the esophagus without difficulty. Diffuse esophageal ulcerations secondary to reflux all the way to cervical esophagus in sporadic form and interrupted form was noticed. Gastric pouch was entered. There is a large pool of thickened bile reflux into the greater curvature, appears somewhat suctioned out. NG tube was removed. Anastomotic site was entered. There is no ulceration at the anastomotic site. Approximately 10 inches from the anastomotic site, scope was introduced into the small bowel. There is no ischemia, there is no necrosis, there is no ulceration. Scope was withdrawn back to the gastric pouch and metallic clip at 9 o'clock position and the anastomotic site was noticed. Otherwise, cardia of the stomach appeared to be benign. gastritis seen and suction of some of the bile was undertaken. The patient extubated. No biopsies obtained, tolerated the procedure well. IMPRESSION: Status post gastric bypass apparently for antral ulcer in past. No necrosis, no obstruction, no stenosis at the reach of the scope. Bile retention, bile reflux gastritis. PLAN AND DISCUSSION: Aggressive ulcer therapy in this particular case. Protonix 40 mg IV b.i.d., sucralfate 2 grams slurry q.i.d., addition of metoclopramide 10 mg a.m. and p.m. A flat plate of the abdomen tomorrow morning to see if there is any worsening or improvement of reported concerns on CT scan. If he becomes relentlessly nauseated and vomiting, then replacement of NG tube and workup in progress. [place], [place] OPERATIVE NOTE NAME: COLTON VIEIRA UNIT #: [id number] ROOM: [facility] DOCTOR: KE HOBSON MD BIRTHDATE: [birth year] KE HOBSON MD CM:OPRECORD:OPERATIVE NOTE 1142 1242 KE HOBSON MD 09/09/17 1242 interface
--- NOTE | ~2017-09-08 | CON ---
[place], [place] REPORT OF CONSULTATION [facility]: [id number] UNIT #: [id number] ROOM: 506 DOCTOR: JAZLYN GARCIAFAVIOETNAEDWARDO BIRTHDATE: [birth year] DOS: 09/09/2017 HISTORY OF PRESENT ILLNESS: The patient presented with nausea, vomiting, unable to eat anything. He is expressing substernal chest pain, subxiphoid pain with nausea. He has had a cholecystectomy about 10 days ago. In the Emergency Room, he had a panel of blood work done, white blood cell was 10, H and H of 12 and 37. Comprehensive metabolic panel: BUN and creatinine 116 and 5.9. GFR was 13. His electrolytes were relatively balanced, lipase of 105. CT scan of the abdomen and pelvis was done, postoperative changes of gastric bypass surgery demonstrated. There is moderate thickening appearance of the proximal to small bowel distal to the anastomosis, possible partial obstruction related to anastomosis, moderately distended fluid filled stomach is noticed, mild stranding is seen within the gallbladder fossa. In addition, there is indeterminate area of low attenuation with internal area in the undersurface of the liver, findings could be associated with underlying infectious process recommended. Lactic acid was 1.6. His troponin levels were within normal limits. His lactic acid was reassessed, normal. CBC: White blood cell remains normal. H and H remains an all time stable, INR 1.0. After hydration, his BUN and creatinine improved to 67 and 2.14, which is significant improvement with the improvement of GFR to 38. PAST MEDICAL HISTORY: Otherwise, the patient's nausea, vomiting, CVA, history of gastric ulcer, hypertension, obesity, BPH, cholelithiasis. PAST SURGICAL HISTORY: He is telling me about 10 days ago, he has had cholecystectomy, partial gastric bypass, removal of the left eye. SOCIAL HISTORY: Past smoker and nonalcohol consumer. FAMILY HISTORY: Noncontributory. ALLERGIES: To no known medications. MEDICATIONS: Medication list has been reviewed. REVIEW OF SYSTEMS: HEENT: Denies double, blurred vision, left eye blind enucleated. DIGESTIVE SYSTEM: Nausea, vomiting, epigastric distress. No hematemesis, no hematochezia. CARDIOVASCULAR: No acute cardiac chest pain. PULMONARY: No acute shortness of breath. PHYSICAL EXAMINATION: HEENT: Head normocephalic, nontraumatic. 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 NECK: Supple, no thyromegaly, no cervical lymphadenopathy. CHEST: Symmetric anatomy, equal expansion. No wheeze, no rhonchi. HEART: Normal sinus rhythm, no gallop, no murmur. ABDOMEN: Obese, soft. No hepato-organomegaly. Bowel sounds present. EXTREMITIES: No cyanosis. No pedal edema. [place], [place] REPORT OF CONSULTATION NAME: COLTON VIEIRA UNIT #: [id number] ROOM: 506 DOCTOR: KE HOBSON MD BIRTHDATE: [birth year] NEUROLOGIC: Alert, oriented to time, place, person. IMPRESSION: Nausea, vomiting, abdominal pain, epigastric distress. The patient insisting that he has had a cholecystectomy 10 years ago and he has not had gastric bypass surgery, radiologic report otherwise as indicated. Other adjunctive diagnoses as outlined in paragraph past medical and surgical history: History of cerebrovascular accident, cholelithiasis which has been addressed, benign prostatic hypertrophy, gastric ulcer, hypertension, obesity. Labs and records and data already reviewed. We will proceed with endoscopic assessment of upper GI tract ruling out obstruction. KE HOBSON MD CM:CONSTR:REPORT OF CONSULTATION 1044 09/09/17 1126 interface
[~2017-09-08 02:20] MED LIST changes: +ZOFRAN ODT4 MG SL
[2017-09-08 03:10] LABS: BASO # 0.1 10*3/uL (0.0-0.1); BASO % 0.7 % (0.0-1.0); EOS # 0.5 10*3/uL (0.0-0.4); EOS % 4.7 % (1.0-4.0); HEMATOCRIT 37.6 % (42.0-52.0); HEMOGLOBIN 12.9 g/dl (14.0-18.0); LYMPH # 1.7 10*3/uL (1.3-4.4); LYMPH % 16.5 % (27.0-41.0); MEAN CELL VOLUME 87.6 fl (80.0-94.0); MEAN CORPUSCULAR HGB 30.1 pg (27.0-31.0); MEAN CORPUSCULAR HGB CONC 34.3 g/dl (33.0-37.0); MEAN PLATELET VOLUME 9.6 fl (9.6-12.3); MONO # 0.8 10*3/uL (0.1-1.0); MONO % 7.6 % (3.0-9.0); NEUT # 6.9 10*3/uL (2.3-7.9); PLATELET COUNT AUTOMATED 415 10*3/uL (130-400); RED BLOOD COUNT 4.29 10*6/uL (4.50-5.90); RED CELL DISTRI WIDTH 12.4 % (0-14.5)
--- NOTE | 2017-09-08 03:22 | NUR ---
1ST LITER OF NSS THAT WAS STARTED PRIOR TO ED ARRIVAL BY EMS HAS COMPLETED.
[2017-09-08 03:26] LABS: ALBUMIN 3.5 gm/dl (3.1-4.5); CREATININE 5.19 mg/dL (0.70-1.30); POTASSIUM 4.4 mmol/L (3.5-5.1); TOTAL PROTEIN 7.7 gm/dL (6.4-8.2)
--- NOTE | 2017-09-08 04:17 | NUR ---
NOTIFIED PHYSCIAN OF PATIENTS BLOOD PRESSURE OF 89/57. NO ORDERS RECEIVED
--- NOTE | 2017-09-08 05:30 | NUR ---
A 71, admitted to , under the services of DARYL Pickett DO with a diagnosis of SBO, ACUTE KIDNEY INJURY. Chief complaint is RECENT INPATIENT 08/13-. GB WITH DR AVILEZ. N/V AND WT LOSS SINCE. Patient arrived via bed from ER. Monitor applied. Initial assessment completed. Vital signs taken and recorded. DARYL PICKETT DO / DR OJEDA notified of admission to the unit. Orders received. See assessment for past medical history, medications and allergies. Patient and/or family oriented to unit. [facility] visitation policy reviewed. Clothing/patient valuable form completed. SANKET PLUNKETT
[2017-09-08] MEDS ORDERED: MULTIVITAMINS1 EAC6 PO (05:50)
[2017-09-08] MEDS ORDERED: HYDROCHLOROTHIA25 M1 PO (05:50)
[2017-09-08] MEDS ORDERED: ZETIA10 MG PO (05:51)
--- NOTE | 2017-09-08 06:00 | NUR ---
RESTING IN BED. RESPIRATIONS EASY. LUNGS DIMINISHED. PULSE OX 100% RA. ABD SOFT WITH HYPERACTIVE BOWEL SOUNDS. HEALING SURGICAL INCISION NOTED TO RUQ. IV FLUIDS INFUSING PER ORDER. CALL LIGHT WITHIN REACH. BED ALARM MAINTAINED FOR SAFETY
--- NOTE | 2017-09-08 06:35 | NUR ---
DR AVILEZ CONTACTED REGARDING CONSULT. NEW ORDERS RECEIVED
--- NOTE | 2017-09-08 11:12 | NUR ---
COLTON VIEIRA [id number] Please refer to the physician's history and physical for past medical history, comorbid conditions, and allergies. Diagnosis: ACUTE KIDNEY INJURYK, NAUSEA &VOMITING, SMALL MICHELE Cabrera Score: 13,MODERATE RISK WOUND DESCRIPTIONS: Location of the wound: coccyx Type of wound: stage 1 Size: 8.0cm x 10.0cm x <0.1cm Tunneling: none Undermining: none Sinus Tract: none Presence of Exudate: none Amount: None Color: Red Odor: None Periwound Skin Appearance: Normal Wound edges: closed Pain (associated with wound): none at time of assessment How does patient state this happened? pt unable to state how this happened Location of the wound: right abdomen Type of wound: surgical Thickness: Full Size: 21.0cm x 0.7cm x 0.2cm Tunneling: none Undermining: none Sinus Tract: none Presence of Exudate: Purulent Amount: Light Color: Yellow, brown Odor: None Periwound Skin Appearance: Erythema Wound edges: approximated Pain (associated with wound): none at time of assessment How does patient state this happened? pt stated he had surgery 3 weeks ago tomorrow. Surface the patient is resting on: Isoflex SKIN PREVENTION RECOMMENDATION: 1. Pressure redistribution support surface as appropriate 2. Elevate heels 3. Remove boots/TEDS every shift and reapply 4. Head of bed 30 degrees as tolerated 5. Assess nutrition and hydration 6. Manage moisture 7. Avoid the use of containment devices while in bed 8. Use absorptive products on surfaces limit layers of linens on bed 9. Turn and reposition every 1-2 hours in bed and every 1 hour in chair as tolerated 10. Weight shifts every 15 minutes while up in chair 11. Offloading with pillows or device to keep heels elevated off bed 12. Monitor skin at least every shift 13. Inspect under medical devices twice a day WOUND TREATMENT RECOMMENDATIONS: Cleanse coccyx with nss and apply hydraguard and cover area with optifoam gentle daily and prn for soiling. Spoke with Dr. Figueroa regarding surgical incision towards the sterum that has some yellow slough noted with purulent drainage he was the one who did the surgery he stated he wasn't able to see the patient today but will see him after he is in the clinic.
--- NOTE | 2017-09-08 11:18 | NUR ---
PATIENT VOMITING BROWNISH GREEN WITH A FECAL SMELL. ROUTINE ZOFRAN GIVEN. PATIENT IS REFUSING NG TUBE AT THIS TIME.
--- NOTE | 2017-09-08 11:22 | NUR ---
notified Dr. Thomas regarding wound care recommendations.
--- NOTE | 2017-09-08 11:47 | NUR ---
DR HOBSON NOTIFIED OF PT HAVING FECAL SMELLING BM. NEW ORDERS RECIEVED.
--- NOTE | 2017-09-08 12:00 | NUR ---
DR VASQUEZ ON FLOOR AND NOTIFIED OF CONSULT. IV FLUIDS RATE INCREASED PER DR VASQUEZ ORDER.
--- NOTE | 2017-09-08 12:00 | NUR ---
PATIENT VOMITING GREENISH BROWN WITH A FECAL SMELL. PATIENT GIVEN ROUTINE ZOFRAN. PATIENT IS REFUSING TO HAVE NG TUBE PLACED.
--- NOTE | 2017-09-08 13:33 | NUR ---
PHYSICAL THERAPY PAtient vomitting fecal like substances and recieving X RAy at this time. Inappropraite for PT services at this date. Will check patients status at a later date. Thank you for this referral. Shahnaz Disla,PT
--- NOTE | 2017-09-08 13:34 | NUR ---
Occupational Therapy referral received this date. Patient having fecal smelling emesis and currently getting an x-ray. OTR will recheck at a later date for appropriateness for OT. Thank you for this referral. Kailey Martines OTR/frances
--- NOTE | 2017-09-08 16:53 | NUR ---
DR VASQUEZ HERE TO SEE PT.
--- NOTE | 2017-09-08 20:30 | NUR ---
AWAKE, WATCHING TV. NO DISTRESS NOTED. RESPIRATIONS EASY. LUNGS DIMINISHED. PULSE OX 92% RA. NG TUBE MAINTAINED TO RIGHT NARE, CONNECTED TO LIS AND DRAINING GREENISH BROWN LIQUID. PATIENT DENIES NAUSEA. DRESSING MAINTAINED TO RUQ HEALING SURGICAL INCISION. FUNES PATENT. OFFERED AND EDUCATED REGARDING TEDS, DECLINED. IV FLUIDS INFUSING PER ORDER. CALL LIGHT WITHIN REACH. NO VOICED COMPLAINTS
--- NOTE | 2017-09-08 22:55 | NUR ---
SLEEPING. NG TUBE MAINTAINED. IV FLUIDS INFUSING. CALL LIGHT WITHIN REACH
[2017-09-09] VITALS (9 sets, daily range): BP systolic 78–124; BP diastolic 50–80
--- NOTE | 2017-09-09 | NUR ---
SLEEPING. NO DISTRESS NOTED. RESPIRATIONS EASY. VSS. NG MAINTAINED TO RIGHT NARE. IV FLUIDS INFUSING PER ORDER.
--- NOTE | 2017-09-09 06:00 | NUR ---
SLEPT THROUGHOUT NIGHT WITH NO DISTRESS NOTED. RESPIRATIONS EASY. NG MAINTAINED TO RIGHT NARE WITH 400 CC OUTPUT THIS SHIFT. IV FLUIDS MAINTAINED. CALL LIGHT WITHIN REACH. NPO FOR SURGERY
[2017-09-09 07:18] LABS: BASO # 0.1 10*3/uL (0.0-0.1); BASO % 0.7 % (0.0-1.0); EOS # 0.3 10*3/uL (0.0-0.4); EOS % 3.6 % (1.0-4.0); HEMATOCRIT 35.3 % (42.0-52.0); LYMPH # 1.2 10*3/uL (1.3-4.4); LYMPH % 14.2 % (27.0-41.0); MEAN CELL VOLUME 90.1 fl (80.0-94.0); MEAN CORPUSCULAR HGB 30.6 pg (27.0-31.0); MEAN PLATELET VOLUME 9.7 fl (9.6-12.3); MONO # 0.7 10*3/uL (0.1-1.0); MONO % 8.2 % (3.0-9.0); NEUT # 6.2 10*3/uL (2.3-7.9); NEUT % 72.2 % (47.0-73.0); PLATELET COUNT AUTOMATED 323 10*3/uL (130-400); RED BLOOD COUNT 3.92 10*6/uL (4.50-5.90); RED CELL DISTRI WIDTH 12.8 % (0-14.5); WHITE BLOOD COUNT 8.5 10*3/uL (4.8-10.8)
[2017-09-09 07:37] LABS: ACT PARTIAL THROMBO TIME 26.9 SECONDS (20.8-31.5)
[2017-09-09 07:46] LABS: ALBUMIN 3.1 gm/dl (3.1-4.5); BILIRUBIN, DIRECT 0.1 mg/dL (0.0-0.2); CREATININE 2.14 mg/dL (0.70-1.30); PHOSPHOROUS 3.8 mg/dL (2.5-4.9); POTASSIUM 4.5 mmol/L (3.5-5.1); TOTAL PROTEIN 6.7 gm/dL (6.4-8.2)
--- NOTE | 2017-09-09 08:00 | NUR ---
IN BED AWAKE ALERT AND ORIENTED X3, DENIES N/V. STATES HE IS PASSING GAS. NO S/S OF DISTRESS NOTED. SEE ASSESS. PT FOR EGD TODAY. WILL CONT TO MONITOR. CALL LIGHT IN REACH.
--- NOTE | 2017-09-09 08:30 | NUR ---
LABORER PIPELINES VS. PT IS SOUND ASLEEP. DID NOT WAKEN. 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 SON AND DAUGHTER HELP. WILL FOLLOW FOR DC NEEDS.
--- NOTE | 2017-09-09 10:19 | NUR ---
PHYSICAL THERAPY Patient at surgery this date. Thank you for this referral. Shahnaz Disla,PT
--- NOTE | 2017-09-09 10:22 | NUR ---
Patient at surgery this date. Thank you for this referral. Kailey ANDUJAR/frances
--- NOTE | 2017-09-09 11:50 | NUR ---
SPOKE TO DR HOBSON NEW ORDERS RECEIVED FOR CARAFATE SLURRY PO, PROTONIX IV BID , ICE CHIPS ONLY, FLAT PLATE AND KUB TOMORROW AM, AND NPO ORDER. ALSO PER SURGERY NURSE THEY REMOVED HIS NG TUBE.
--- NOTE | 2017-09-09 21:00 | NUR ---
SLEEPING, AWAKENS EASILY. RESPIRATIONS EASY. LUNGS DIMINISHED. PULSE OX 97% RA. ABD SOFT WITH HYPOACTIVE BOWEL SOUNDS. DENIES N/V/D. IV FLUIDS INFUSING PER ORDER. CALL LIGHT WITHIN REACH. NO VOICED COMPLAINTS. BED ALARM MAINTAINED FOR SAFETY
[2017-09-10] VITALS: BP 96/64
[2017-09-10 06:12] LABS: BASO % 0.6 % (0.0-1.0); EOS # 0.3 10*3/uL (0.0-0.4); EOS % 4.2 % (1.0-4.0); HEMATOCRIT 31.3 % (42.0-52.0); HEMOGLOBIN 10.3 g/dl (14.0-18.0); LYMPH # 1.4 10*3/uL (1.3-4.4); LYMPH % 21.7 % (27.0-41.0); MEAN CELL VOLUME 92.1 fl (80.0-94.0); MEAN CORPUSCULAR HGB 30.3 pg (27.0-31.0); MEAN CORPUSCULAR HGB CONC 32.9 g/dl (33.0-37.0); MEAN PLATELET VOLUME 9.8 fl (9.6-12.3); MONO # 0.6 10*3/uL (0.1-1.0); MONO % 9.8 % (3.0-9.0); NEUT # 3.9 10*3/uL (2.3-7.9); NEUT % 62.7 % (47.0-73.0); PLATELET COUNT AUTOMATED 241 10*3/uL (130-400); WHITE BLOOD COUNT 6.2 10*3/uL (4.8-10.8)
[2017-09-10 06:48] LABS: ALBUMIN 2.7 gm/dl (3.1-4.5); ALKALINE PHOSPHATASE 82 U/L (45-117); CHLORIDE 109 mmol/L (98-107); CREATININE 1.38 mg/dL (0.70-1.30); POTASSIUM 4.4 mmol/L (3.5-5.1); SGOT/AST 16 IU/L (3-35); SGPT/ALT 10 U/L (12-78); SODIUM 141 mmol/L (136-145); TOTAL PROTEIN 6.1 gm/dL (6.4-8.2)
[2017-09-10 06:51] LABS: BUN 39 mg/dl (7-24)
[2017-09-10 08:00] VITALS: BP 94/62
--- NOTE | 2017-09-10 08:00 | NUR ---
IN BED AWAKE ALERT AND ORIENTED X3, NO C/O. NO S/S OF DISTRESS. DENIES N/V. WILL CONT TO MONITOR. CALL LIGHT IN REACH. SEE ASSESS.
--- NOTE | 2017-09-10 11:00 | NUR ---
ATTEMPT MADE TO CALL DR HOBSON REGARDING RESULTS OF FLAT PLATE AND NO ANSWER. MESSAGE LEFT AWATING CALLBACK.
[2017-09-10 13:00] VITALS: BP 119/78
[2017-09-10 16:00] VITALS: BP 120/72
--- NOTE | 2017-09-10 16:26 | NUR ---
NO CALLBACK RECEIVED BY DR HOBSON OF YET. PER DR ESQUIVEL'S REQUEST CALL PLACED TO DR AVILEZ TO ASK FOR A DIET ADVANCEMENT. DR AVILEZ WAS READ THE RESULTS OF FLAT PLATE AND LABS. HE DID GIVE ME A NEW ORDER TO ADVANCE THE DIET TO CLEAR LIQUID.
--- NOTE | 2017-09-10 16:30 | NUR ---
OF RIGHT NOW PT IS TOLERATING CLEAR LIQUID DIET.
[2017-09-10 20:00] VITALS: BP 111/64
--- NOTE | 2017-09-10 20:00 | NUR ---
PATIENT WITH HEALING INCISION ON RIGHT RIB AREA AND UPPER NAVEL AREA. NO DRAINAGE NOTED. NO EDEMA NOTED, LUNGS ARE CLEAR. IV INTACT IN RIGHT HAND. PATIENT VERY TALKATIVE, ALERT AND ORIENTED. PATIENT WITH LEFT SIDED WEAKNESS D/T PAST CVA. FUNES CATHETER INTACT, DRAINING CLEAR YELLOW URINE.
[2017-09-11] VITALS: BP 95/61
--- NOTE | 2017-09-11 03:21 | NUR ---
24 HR chart check completed.
--- NOTE | 2017-09-11 03:46 | NUR ---
PATIENT LYING IN BED, SLEEPS IN SHORT NAPS DURING THE NIGHT. NO S/S OF DISTRESS, VOICES NO COMPLAINTS. IV INTACT, FLUIDS PER ORDER.
[2017-09-11 06:49] LABS: BASO % 0.5 % (0.0-1.0); EOS # 0.5 10*3/uL (0.0-0.4); HEMATOCRIT 26.3 % (42.0-52.0); LYMPH % 18.6 % (27.0-41.0); MEAN CELL VOLUME 89.5 fl (80.0-94.0); MEAN CORPUSCULAR HGB 30.6 pg (27.0-31.0); MEAN CORPUSCULAR HGB CONC 34.2 g/dl (33.0-37.0); MEAN PLATELET VOLUME 9.5 fl (9.6-12.3); MONO # 0.4 10*3/uL (0.1-1.0); MONO % 7.2 % (3.0-9.0); NEUT # 3.5 10*3/uL (2.3-7.9); PLATELET COUNT AUTOMATED 194 10*3/uL (130-400); RED BLOOD COUNT 2.94 10*6/uL (4.50-5.90); RED CELL DISTRI WIDTH 12.4 % (0-14.5); WHITE BLOOD COUNT 5.5 10*3/uL (4.8-10.8)
[2017-09-11 07:03] LABS: ALBUMIN 2.3 gm/dl (3.1-4.5); ALKALINE PHOSPHATASE 70 U/L (45-117); CHLORIDE 100 mmol/L (98-107); CREATININE 1.17 mg/dL (0.70-1.30); SGOT/AST 18 IU/L (3-35); SGPT/ALT 12 U/L (12-78); SODIUM 135 mmol/L (136-145); TOTAL PROTEIN 4.9 gm/dL (6.4-8.2)
[2017-09-11 07:20] LABS: BUN 17 mg/dl (7-24); POTASSIUM 3.4 mmol/L (3.5-5.1)
--- NOTE | 2017-09-11 07:56 | NUR ---
Shift chart check completed.
[2017-09-11 08:00] VITALS: BP 102/66
[2017-09-11 12:00] VITALS: BP 116/75
[2017-09-11 16:00] VITALS: BP 102/64
[2017-09-11 19:57] VITALS: BP 104/62
--- NOTE | 2017-09-11 23:49 | NUR ---
PATIENT HAD EPISODE OF VOMITING AND INCONTINENCE. SCHEDULED IV REGLAN AND IV ZOFRAN ADMINISTERED SLOWLY PER ORDER. PATIENT CLEANED UP AT THIS TIME, NEW BED LINENS/GOWN PROVIDED. NEW DRESSING APPLIED TO COCCYX PER ORDER. NYSTATIN POWDER ALSO APPLIED TO DARÍO AREA PER ORDER. PATIENT LEFT WITH BED LOCKED IN LOW POSITION, CALL LIGHT LEFT IN REACH. WILL CONTINUE TO MONITOR.
[2017-09-12] VITALS: BP 103/77
--- NOTE | 2017-09-12 01:03 | NUR ---
PATIENT ASLEEP IN BED AT THIS TIME. RESPIRATIONS EASY, NO S/S OF DISTRESS NOTED. NO FURTHER EPISODES OF VOMITING. WILL MONITOR. CALL LIGHT IN REACH.
[2017-09-12 06:00] VITALS: BP 114/74
[2017-09-12 06:25] LABS: BASO % 0.3 % (0.0-1.0); EOS # 0.4 10*3/uL (0.0-0.4); EOS % 5.7 % (1.0-4.0); HEMATOCRIT 28.4 % (42.0-52.0); HEMOGLOBIN 9.7 g/dl (14.0-18.0); LYMPH # 0.8 10*3/uL (1.3-4.4); LYMPH % 12.8 % (27.0-41.0); MEAN CELL VOLUME 87.9 fl (80.0-94.0); MEAN CORPUSCULAR HGB CONC 34.2 g/dl (33.0-37.0); MEAN PLATELET VOLUME 9.6 fl (9.6-12.3); MONO # 0.5 10*3/uL (0.1-1.0); MONO % 7.6 % (3.0-9.0); NEUT # 4.8 10*3/uL (2.3-7.9); NEUT % 73.3 % (47.0-73.0); PLATELET COUNT AUTOMATED 171 10*3/uL (130-400); RED BLOOD COUNT 3.23 10*6/uL (4.50-5.90); RED CELL DISTRI WIDTH 12.1 % (0-14.5); WHITE BLOOD COUNT 6.5 10*3/uL (4.8-10.8)
[2017-09-12 06:34] LABS: BUN 8 mg/dl (7-24); CHLORIDE 100 mmol/L (98-107); CREATININE 1.09 mg/dL (0.70-1.30); POTASSIUM 3.6 mmol/L (3.5-5.1); SODIUM 137 mmol/L (136-145)
--- NOTE | 2017-09-12 06:44 | NUR ---
SPOKE TO AT THIS TIME REGARDING PATIENT'S EARLIER EPISODE OF VOMITING/DIARRHEA WHEN GIVEN PO SUCRALFATE SLURRY. ALSO DISCUSSED EGD RESULTS PER OPERATIVE NOTE ON 09/10. PER , DISCONTINUE SUCRALFATE. ALSO INSTRUCTED TO DECREASE IV REGLAN TO 10 MG BID AND TO CHANGE DIET TO FULL LIQUID DIET TO SEE HOW PATIENT TOLERATES.
[2017-09-12 08:00] VITALS: BP 110/76
--- NOTE | 2017-09-12 09:43 | NUR ---
PHYSICAL THERAPY PAtient evaluated on 5, full evaluation to follow. Continue with PT as per plan of care with fall, chronic left hemiparesis, left foot drop and acute debility precautions. Recommend SNF, patient refuses, will require 24/7 family assist and complete home health services. PAtient is high complexity via chart review, tests and evaluation: 27508. Thank you for this referral. Shahnaz Disla,PT
--- NOTE | 2017-09-12 10:51 | NUR ---
Occupational Therapy evaluation completed on 5 with full eval to follow. Precautions include fall risk, wood, IV, coccyx wound, moderate complexity level 30434. Recommend OT per POC and SNF upon d/c. Patient wants to return home with who recently had a CVA and patient is her caregiver. IF return home then OT,PT,SN,FOOD SERVICE HOTEL RUNNER indicated. Thank you for this referral. Kailey Martines OTR/L
--- NOTE | 2017-09-12 10:54 | NUR ---
PT IS ACTIVE WITH [facility]. WILL NEED RESUME ORDER.
[2017-09-12 12:00] VITALS: BP 120/82; BP 123/73
--- NOTE | 2017-09-12 12:42 | NUR ---
PHYSICAL THERAPY Jono seen for his physical therapy session X 2. Pt with left hemiparesis and foot drop and has IV this visit. Transfer supine/sit MOD A X 1, up for sitting balance with MOD A X 1. Followed by sit/stand and up with MAX A X 1, standing and having a bowel movement at this time and needing back supine in bed and cleaned. Came back later transfer supine/sit MOD A X 1, standing balance once up MOD A X 1. Then slow pivot in front of his bedside chair and another standing balance before sitting. Verbal cues for standing balance and not to lean backwards and just hold this as long as he could, followed by up in bedside chair, call light and Pt's phone. LUMA MOLINA DIRECTOR [employer].
--- NOTE | 2017-09-12 13:40 | NUR ---
CONTACTED PATIENTS SON REGARDING DISCHARGE HE IS IN [facility] AND WILL NOT BE ABLE TO PICK FATHER UP UNTIL 5 PM.
--- NOTE | 2017-09-12 13:41 | NUR ---
REMOVED PATIENTS CATHETER GETTING READY FOR PATIENT TO BE DISCHARGED
[2017-09-12 16:00] VITALS: BP 123/73
[2017-09-12] MEDS ORDERED: ZOFRAN4 MG PO (17:04)
--- NOTE | 2017-09-12 17:41 | NUR ---
Discharge instructions reviewed with patient/family. Patient receptive and verbalizes understanding. Follow-up care arranged. Written instructions given to patient/family. PERRY OWENS
--- NOTE | 2017-09-13 07:37 | NUR ---
Patient discharged to home with home health via [facility]. Received order, faxed clincals.
--- NOTE | 2017-09-13 07:46 | NUR ---
PHYSICAL THERAPY CO-SIGN I approve of the Phyical Therapy notes written above. HAMILTON CHACKO PT
--- NOTE | 2017-09-13 10:09 | NUR ---
SON CALLED REQUESTING HOSP BED. [facility]. INFO FAXED TO [facility] [place]. SCRIPT INCLUDED.
== END 2017-09-12 17:41 | disposition home or self-care (01) | DRG 871 ==
LOC: ED 02:20 → EDHOLD 04:37 → 5E 04:37
PROVIDERS: Emergency Medicine; Internal Medicine; ADMIT Internal Medicine
PROC: 0DJ08ZZ Inspection of Upper Intestinal Tract, Via Natural or Artificial Opening Endoscopic (ICD-10-PCS; principal; 2017-09-08)
DX: A41.9 Sepsis, unspecified organism (principal); N17.0 Acute kidney failure with tubular necrosis; I95.9 Hypotension, unspecified; E87.2 Acidosis; E87.8 Other disorders of electrolyte and fluid balance, not elsewhere classified; E87.1 Hypo-osmolality and hyponatremia; R65.20 Severe sepsis without septic shock; R73.9 Hyperglycemia, unspecified; D47.3 Essential (hemorrhagic) thrombocythemia; E86.9 Volume depletion, unspecified; K29.60 Other gastritis without bleeding; K83.8 Other specified diseases of biliary tract; N40.0 Benign prostatic hyperplasia without lower urinary tract symptoms; K21.9 Gastro-esophageal reflux disease without esophagitis; I10 Essential (primary) hypertension; E66.9 Obesity, unspecified; Z90.49 Acquired absence of other specified parts of digestive tract; Z86.73 Personal history of transient ischemic attack (TIA), and cerebral infarction without residual deficits; Z79.899 Other long term (current) drug therapy; Z79.82 Long term (current) use of aspirin; Z87.440 Personal history of urinary (tract) infections; Z89.112 Acquired absence of left hand; Z87.891 Personal history of nicotine dependence; Z98.84 Bariatric surgery status; Z68.27 Body mass index [BMI] 27.0-27.9, adult

== ENCOUNTER → 2024-12-28 | Outpatient (CLI) | payer OTHER ==
[~2024-12-28] MED LIST changes: +HYDROCHLOROTHIA25 M1 PO; +MULTIVITAMINS1 EAC6 PO; +ZETIA10 MG PO; +ZOFRAN4 MG PO
[2024-12-28 17:23] LABS: BILIRUBIN Negative (Negative); BLOOD Negative (Negative); CLARITY Clear (Clear); COLOR Yellow (Yellow); GLUCOSE Negative (Negative); KETONE Negative (Negative); LEUKO ESTERASE Trace (Negative); NITRITE Negative (Negative); PH 5.5 (4.5-8.0); SPECIFIC GRAVITY 1.015 (1.001-1.030); UROBILINOGEN 0.2 E.U./dl (0.0-1.0)
[2024-12-28 17:32] LABS: RBC 0-2 rbc/hpf (0-2)
[2024-12-28 17:33] LABS: EPITHELIAL CELLS 0-2
== END | disposition home or self-care (01) ==
LOC: LAB 16:52
PROVIDERS: ATTEND Nurse Practitioner Family
DX: R30.0 Dysuria (principal)